=== PATIENT | male | born 1960 | race American Indian/Alaskan Native ===

== ENCOUNTER 2017-07-02 07:20 | Emergency (ER) | payer MEDICARE ==
[2017-07-02 07:27] VITALS: BP 184/79
[2017-07-02] MEDS ORDERED: MOTRIN PO ONE (08:33)
[2017-07-02] MEDS ORDERED: BICILLIN L-A IM ONE (08:34)
--- NOTE | 2017-07-02 08:36 | Emergency Department Report ---
ED ENT HPI - General Chief complaint: Dental/Oral Stated complaint: TOOTH ABCESS Time Seen by Provider: 07/02/17 07:57 Source: patient, RN notes reviewed Mode of arrival: Ambulatory Limitations: No Limitations - History of Present Illness MD complaint: tooth pain -: Gradual, week(s) 1 - severe gum dz. no teeth Severity: moderate Quality: aching Consistency: constant Improves with: none Worsens with: none Context-Epistaxis: history of similar Context- Dental: history of dental caries, poor dental care Associated Symptoms: gum swelling, toothache. denies: pain with swallowing, sore throat, tinnitus, hearing loss, discharge from ear, rhinorrhea - Related Data Previous Rx's Medication Instructions Recorded Last Taken Type Carvedilol [Coreg] 25 mg PO BID #60 tablet 06/14/16 Unknown Rx Famotidine [Pepcid] 20 mg PO BID #14 tablet 06/14/16 Unknown Rx Losartan [Cozaar] 50 mg PO QDAY #30 tablet 06/14/16 Unknown Rx amLODIPine [Norvasc] 5 mg PO DAILY #30 tab 06/14/16 Unknown Rx Amoxicillin 500 mg PO BID #20 capsule 07/02/17 Unknown Rx Naproxen [Naprosyn] 500 mg PO BID PRN #20 tablet 07/02/17 Unknown Rx Allergies Allergy/AdvReac Type Severity Reaction Status Date / Time No Known Allergies Allergy Verified 07/02/17 07:23 ED Dental HPI - General Chief complaint: Dental/Oral Stated complaint: TOOTH ABCESS Time Seen by Provider: 07/02/17 07:57 Source: patient Mode of arrival: Ambulatory Limitations: No Limitations - Related Data Previous Rx's Medication Instructions Recorded Last Taken Type Carvedilol [Coreg] 25 mg PO BID #60 tablet 06/14/16 Unknown Rx Famotidine [Pepcid] 20 mg PO BID #14 tablet 06/14/16 Unknown Rx Losartan [Cozaar] 50 mg PO QDAY #30 tablet 06/14/16 Unknown Rx amLODIPine [Norvasc] 5 mg PO DAILY #30 tab 06/14/16 Unknown Rx Amoxicillin 500 mg PO BID #20 capsule 07/02/17 Unknown Rx Naproxen [Naprosyn] 500 mg PO BID PRN #20 tablet 07/02/17 Unknown Rx Allergies Allergy/AdvReac Type Severity Reaction Status Date / Time No Known Allergies Allergy Verified 07/02/17 07:23 ED Review of Systems ROS: Stated complaint: TOOTH ABCESS Other details as noted in HPI Comment: All other systems reviewed and negative ENT: as per HPI, dental pain, other (a/c issue; not new; does not have money for dmd) ED Past Medical Hx - Past Medical History Hx Hypertension: Yes Hx Congestive Heart Failure: No Hx Diabetes: No Hx Renal Disease: Yes Hx Asthma: No Hx COPD: No Hx HIV: No Additional medical history: rhabdo - Social History Smoking Status: Current Every Day Smoker - Medications Home Medications: Home Medications Medication Instructions Recorded Confirmed Last Taken Type Carvedilol [Coreg] 25 mg PO BID #60 tablet 06/14/16 Unknown Rx Famotidine [Pepcid] 20 mg PO BID #14 tablet 06/14/16 Unknown Rx Losartan [Cozaar] 50 mg PO QDAY #30 tablet 06/14/16 Unknown Rx amLODIPine [Norvasc] 5 mg PO DAILY #30 tab 06/14/16 Unknown Rx Amoxicillin 500 mg PO BID #20 capsule 07/02/17 Unknown Rx Naproxen [Naprosyn] 500 mg PO BID PRN #20 tablet 07/02/17 Unknown Rx ED Physical Exam - General Limitations: No Limitations General appearance: alert, in no apparent distress - Head Head exam: Present: atraumatic - Eye Eye exam: Present: PERRL - ENT ENT exam: Present: mucous membranes moist, other (no trisism.) - Expanded ENT Exam Expanded Teeth exam: Present: dental caries, gingival enlargement, other (no abscess; no ludwigs; taking po; controlling secretions; chronic issue) 1 - Other (severe gum and dental dz) Throat exam: Positive: normal inspection. Negative: tonsillar erythema, tonsillomegaly, tonsillar exudate, R peritonsillar mass, L peritonsillar mass - Neck Neck exam: Present: normal inspection, full ROM. Absent: tenderness, meningismus, lymphadenopathy, thyromegaly - Respiratory Respiratory exam: Present: normal lung sounds bilaterally - Cardiovascular Cardiovascular Exam: Present: regular rate - GI/Abdominal GI/Abdominal exam: Present: soft - Rectal Rectal exam: Present: deferred - Back Exam Back exam: Present: normal inspection - Neurological Exam Neurological exam: Present: alert, oriented X3, CN II-XII intact, normal gait, reflexes normal - Psychiatric Psychiatric exam: Present: normal affect, normal mood - Skin Skin exam: Present: warm, dry, intact ED Course Vital Signs 07/02/17 07:24 Temperature 98.8 F Pulse Rate 82 Respiratory 20 Rate Blood Pressure 184/79 O2 Sat by Pulse 96 Oximetry ED Medical Decision Making - Medical Decision Making acute/chronic issue - Differential Diagnosis dental disease Critical care attestation.: If time is entered above; I have spent that time in minutes in the direct care of this critically ill patient, excluding procedure time. ED Disposition Clinical Impression: Dental disease, Gingivitis Disposition: TO HOME OR SELFCARE Is pt being admited?: No Does the pt Need Aspirin: No Condition: Stable Instructions: Dental Abscess (ED), Dental Caries (ED), Acute dental trauma (ED) , Toothache (ED) Additional Instructions: DMD ramses let them know you got a shot today continue home meds meds as ordered until gone free at [facility] Referrals: PRIMARY CARE, [Primary Care Provider] [facility] [Outside] - 3-5 Days [facility] [Outside] - 3-5 Days Time of Disposition: 08:45
== END 2017-07-02 09:13 | disposition home or self-care (01) ==
LOC: ED 07:20
DX: K05.10 Chronic gingivitis, plaque induced (principal); K08.89 Other specified disorders of teeth and supporting structures; I10 Essential (primary) hypertension; F17.200 Nicotine dependence, unspecified, uncomplicated
CPT/HCPCS: 96372; 99282; J0561